=== PATIENT | female | born 2000 | race Two or more races ===

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

== ENCOUNTER 2019-10-09 12:30 | Emergency (ER) | payer SELFPAY ==
[~2019-10-09] VITALS: Ht 154.9 cm; Wt 80.0 kg
[~2019-10-09 12:30] MED LIST changes: +THIA100T43 PO
[2019-10-09 14:15] VITALS: BP 139/73
--- NOTE | 2019-10-09 14:16 | PHYS DOC ---
Past Medical History Past Medical History: No Pertinent History Past Surgical History: No Surgical History Smoking Status: Never Smoker Alcohol Use: None Drug Use: None General Adult EDM: Chief Complaint: LACERATION/AVULSION HPI: HPI: Patient is a 19 year old female who presents with laceration to right hand after punching a mirror today. Patient rates pain 6 out of 10 right third knuckle. Patient denies any radiation of pain, no alleviating or aggravating factors. she did not take anything for pain prior to arrival. Patient is unsure when her last tetanus shot was. Review of Systems: Review of Systems: Musculoskeletal: Denies back pain, see HPI [] Integument: See HPI Psychiatric: Denies depression or anxiety. [] Heart Score: Risk Factors: Risk Factors: DM, Current or recent (<one month) smoker, HTN, HLP, family history of CAD, obesity. Risk Scores: Score 0 - 3: 2.5% MACE over next 6 weeks - Discharge Home Score 4 - 6: 20.3% MACE over next 6 weeks - Admit for Clinical Observation Score 7 - 10: 72.7% MACE over next 6 weeks - Early Invasive Strategies Allergies: Allergies: Allergies Coded Allergies Type Severity Reaction Last Updated Verified No Known Drug Allergies 07/21/14 No Physical Exam: PE: Constitutional: Well developed, well nourished, no acute distress, non-toxic appearance. [] HENT: Normocephalic, atraumatic, bilateral external ears normal, nose normal. [] Eyes: PERRLA, EOMI, conjunctiva normal, no discharge. [] Neck: Normal range of motion, no stridor. [] Cardiovascular:Heart rate regular rhythm Lungs & Thorax: Respirations even and unlabored, no retractions, no respiratory distress Skin: Warm, dry, no erythema, no rash; multiple small lacerations to dorsal aspect of right hand: lac #1- 3 cm laceration to lateral aspect of right hand with active bleeding noted, no visible foreign body, #2- 2 cm vertical laceration proximal to the volar aspect of the third digit without active bleeding or visible foreign body, #3- 1 cm horizontal laceration just proximal to laceration #2 without active bleeding or visible foreign body, #4 0.5 cm horizontal laceration lateral to proximal aspect of laceration number 2 Extremities: No cyanosis, ROM intact, minimal swelling noted to MCP joint of right third finger [] Neurologic: Alert and oriented X 3, no focal deficits noted. [] Psychologic: Affect normal, judgement normal, mood normal. [] EKG: EKG: [] Radiology/Procedures: Radiology/Procedures: PROCEDURE: HAND RIGHT 3V Right hand 3 views. HISTORY: Punched a mirror 3 views were taken of the hand. There is soft tissue injury along the lateral aspect of the hand. 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 There is no fracture or acute osseous abnormality. IMPRESSION: 1. Soft tissue injury right hand. 2. No acute fracture. 3. Short fifth metacarpal. Laceration Repair by me: Anesthesia: 1% lidocaine locally Location: #1 lateral right hand Tendon/Joint/Nerves: No injury Foreign body: None detected after copious irrigation and exploration Technique: 9 Simple Interrupted Sutures with 4-0 Prolene Complexity: No subcutaneous sutures/mucosal repair/edge excision Post Closure Length: 4 cm Anesthesia: 1% lidocaine locally Location: #2 proximal to 3rd digit of right hand Tendon/Joint/Nerves: No injury Foreign body: None detected after copious irrigation and exploration Technique: 4 Simple Interrupted Sutures with 4-0 Prolene Complexity: No subcutaneous sutures/mucosal repair/edge excision Post Closure Length: cm Anesthesia: 1% lidocaine locally Location: #3 proximal to laceration #2 Tendon/Joint/Nerves: No injury Foreign body: None detected after copious irrigation and exploration Technique: 2 Simple Interrupted Sutures with 4-0 Prolene Complexity: No subcutaneous sutures/mucosal repair/edge excision Post Closure Length: 1 cm Anesthesia: 1% lidocaine locally Location: #4 medial to proximal laceration #2 Tendon/Joint/Nerves: No injury Foreign body: None detected after copious irrigation and exploration Technique: 1 Simple Interrupted Sutures with 4-0 Prolene Complexity: No subcutaneous sutures/mucosal repair/edge excision Post Closure Length: 0.5 cm Patient's bleeding was easily controlled in the department and there is no indication of anemia. No evidence of compartment syndrome, neurologic injury, vascular injury, open joint, tendon laceration, or foreign body. Patient is appropriate for outpatient follow up. [] Course & Med Decision Making: Course & Med Decision Making Pertinent Labs and Imaging studies reviewed. (See chart for details) Patient is a 19-year-old female coming in for laceration to her right hand after she punched a mirror today. Will clean wounds, suture laceration, administer tetanus shot. Prescription written for Keflex 500 mg 3 times daily x5 days. Recommend the patient clean the area as affected and apply antibiotic ointment twice daily. Sutures out in 14 days, may take Tylenol or ibuprofen as needed for pain. Patient verbalized an understanding of home care, medications, follow-up, and return to ED instructions and was in agreement with the plan of care. [] Dragon Disclaimer: Draglouie Disclaimer: This electronic medical record was generated, in whole or in part, using a voice recognition dictation system. Departure Departure Impression: Primary Impression: Need for Tdap vaccination Additional Impression: Multiple lacerations Disposition: HOME, SELF-CARE Condition: STABLE Referrals: NO PCP (PCP) Patient Instructions: Laceration Care, Adult, [id number] Additional Instructions: Fill the prescription and use as directed. Keep the affected areas clean and dry. You may take Tylenol or ibuprofen as needed for pain. Keep the dressing that was placed today on for 24 hours then change the dressing twice a day and apply antibiotic ointment to the area. Follow-up with your primary care doctor, or return to the emergency room in 14 days to have the sutures removed, sooner if you develop signs of infection including: redness, warmth, drainage, or a fever. Scripts Cephalexin (KEFLEX) 500 Mg Capsule 500 MG PO TID for 7 Days, #21 CAP 0 Refills Prov: CONSTANTINE GONZALEZ APRN 10/09/19 Justicifation of Admission Dx: Justifications for Admission: Justification of Admission Dx: N/A CONSTANTINE GONZALEZ APRN Oct 09, 2019 14:16
--- NOTE | 2019-10-09 14:41 | RAD ---
Right hand 3 views. HISTORY: Punched a mirror 3 views were taken of the hand. There is soft tissue injury along the lateral aspect of the hand. 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 There is no fracture or acute osseous abnormality. IMPRESSION: 1. Soft tissue injury right hand. 2. No acute fracture. 3. Short fifth metacarpal. Electronically signed by: Vernon Le MD (10/09/2019 2:38 PM) [facility]
[2019-10-09] MEDS ORDERED: DIPH,PERTUSS(ACELL),TET VAC/PF 0.5 ML SYRINGE. VAX IM ONE (14:45)
[2019-10-09] MEDS ORDERED: LIDOCAINE 1% Multi-Dose 20 ML VIAL. INJ ONE (15:45)
[2019-10-09] MEDS ORDERED: CEPH-264 PO (18:06)
== END 2019-10-09 18:24 | disposition home or self-care (01) ==
LOC: ER 12:30
DX: S61.212A Laceration without foreign body of right middle finger without damage to nail, initial encounter (principal); S61.411A Laceration without foreign body of right hand, initial encounter; W25.XXXA Contact with sharp glass, initial encounter; Y93.89 Activity, other specified; Y92.89 Other specified places as the place of occurrence of the external cause; Y99.8 Other external cause status
CPT/HCPCS: 12002; 73130; 90471; 90715; 99283; J3490

== ENCOUNTER 2020-03-12 05:06 | Observation (INO) | payer SELFPAY ==
[~2020-03-12] VITALS: Ht 156.2 cm; Wt 70.9 kg
[2020-03-12] VITALS (20 sets, daily range): BP systolic 100–136; BP diastolic 37–89
[~2020-03-12 05:06] MED LIST changes: +CEPH-264 PO
--- NOTE | 2020-03-12 05:19 | PHYS DOC ---
Past Medical History Past Medical History: No Pertinent History (CHANEL SANCHEZ MD) Past Surgical History: No Surgical History (CHANEL SANCHEZ MD) Smoking Status: Never Smoker Alcohol Use: None Drug Use: None (CHANEL SANCHEZ MD) General Adult EDM: Chief Complaint: ABDOMINAL PAIN HPI: HPI: Patient is a 20 year old female who arrives with a chief complaint of abdominal pain. Patient was in her normal state health until approximately 30 minutes ago when she began having sharp stabbing diffuse nonradiating abdominal pain. Pat ient states the pain is currently 10 out of 10. Pain is worse with palpation. Patient had nausea but no vomiting. Patient has any fevers, chills, cough, shortness of breath. Patient denies any dysuria. Patient's last menstrual period was 1 day ago. (CHANEL SANCHEZ MD) Review of Systems: Review of Systems: Constitutional: Denies fever or chills. [] Eyes: Denies change in visual acuity. [] HENT: Denies nasal congestion or sore throat. [] Respiratory: Denies cough or shortness of breath. [] Cardiovascular: Denies chest pain or edema. [] GI: Complains abdominal pain with nausea but no vomiting diarrhea or blood in stool : Denies dysuria. [] Musculoskeletal: Denies back pain or joint pain. [] Integument: Denies rash. [] Neurologic: Denies headache, focal weakness or sensory changes. [] Endocrine: Denies polyuria or polydipsia. [] Lymphatic: Denies swollen glands. [] Psychiatric: Denies depression or anxiety. [] (CHANEL SANCHEZ MD) Heart Score: Risk Factors: Risk Factors: DM, Current or recent (<one month) smoker, HTN, HLP, family history of CAD, obesity. Risk Scores: Score 0 - 3: 2.5% MACE over next 6 weeks - Discharge Home Score 4 - 6: 20.3% MACE over next 6 weeks - Admit for Clinical Observation Score 7 - 10: 72.7% MACE over next 6 weeks - Early Invasive Strategies (CHANEL SANCHEZ MD) Allergies: Allergies: Allergies Coded Allergies Type Severity Reaction Last Updated Verified No Known Drug Allergies 07/21/14 No (CHANEL SANCHEZ MD) Physical Exam: PE: Constitutional: Well developed, well nourished, no acute distress, non-toxic appearance. [] HENT: Normocephalic, atraumatic, bilateral external ears normal, no trismus nose normal. [] Eyes: PERRLA, EOMI, conjunctiva normal, no discharge. [] Neck: Normal range of motion, no tenderness, supple, no stridor. [] Cardiovascular:Heart rate regular rhythm, peripheral pulse intact cap refill is brisk Lungs & Thorax: Bilateral breath sounds clear, no respiratory distress Abdomen: Soft, diffuse tenderness without guarding or rebound, no masses, no pulsatile masses Skin: Warm, dry, no erythema, no rash. [] Back: No tenderness, no CVA tenderness. [] Extremities: No tenderness, no cyanosis, no clubbing, ROM intact, no edema. [] Neurologic: Alert and oriented X 3, normal motor function, normal sensory function, no focal deficits noted. [] Psychologic: Affect normal, judgement normal, mood normal. [] (CHANEL SANCHEZ MD) EKG: EKG: [] (CHANEL SANCHEZ MD) Radiology/Procedures: Radiology/Procedures: [] (HCANEL SANCHEZ MD) Course & Med Decision Making: Course & Med Decision Making Pertinent Labs and Imaging studies reviewed. (See chart for details) [] 20-year-old female presents with abdominal pain. Patient started her period reportedly yesterday. Patient has a positive test. Quantitative hCG has been added on as well as an ABO Rh and a pelvic sonogram has been ordered. CT has been canceled, Bentyl has been canceled. Care will be signed over to Dr. Parrish with labs, ultrasound and disposition pending. (CHANEL SANCHEZ MD) Dragon Disclaimer: Dragon Disclaimer: This electronic medical record was generated, in whole or in part, using a voice recognition dictation system. (CHANEL SANCHEZ MD) Departure Departure Impression: Primary Impression: Ruptured ectopic Additional Impression: Hyperglycemia Disposition: 09 ADMITTED INPT THIS HOSP Condition: STABLE Referrals: NO PCP (PCP) CHANEL SANCHEZ MD Mar 12, 2020 05:19 ELISHA PERDOMO DO Mar 12, 2020 06:44
[2020-03-12] MEDS ORDERED: ONDANSETRON PF 4 MG/2 ML VIAL. IVP ONE (05:30)
[2020-03-12] MEDS ORDERED: IV NORMAL SALINE 1000ML BAG 1,000 ML IV ONE (05:30)
[2020-03-12] MEDS ORDERED: DICYCLOMINE 20 MG/2 ML VIAL. IM ONE (05:30)
[2020-03-12 05:48] LABS: BILIRUBIN,URINE NEGATIVE (NEG); CLARITY,URINE CLEAR; COLOR,URINE YELLOW; NITRITE,URINE POSITIVE (NEG); PH,URINE 5.5 (<5.0-8.0); PROTEIN,URINE 30 mg/dL (NEG-TRACE); UROBILINOGEN,URINE 0.2 mg/dL (0.2 mg/dL)
[2020-03-12 05:53] LABS: BASO # 0.1 x10^3/uL (0.0-0.2); BASO % 0 % (0-3); EOS # 0.1 x10^3/uL (0.0-0.7); EOS % 1 % (0-3); HEMATOCRIT 32.5 % (36.0-47.0); HEMOGLOBIN 10.9 g/dL (12.0-15.5); LYMPH % 33 % (24-48); MEAN CORPUSCULAR HEMOGLOBIN 30 pg (25-35); MEAN CORPUSCULAR HGB CONC 34 g/dL (31-37); MEAN CORPUSCULAR VOLUME 89 fL (79-100); MONO % 7 % (0-9); NEUT # 9.1 x10^3/uL (1.8-7.7); NEUT % 59 % (31-73); PLATELET COUNT 492 x10^3/uL (140-400); RED BLOOD COUNT 3.64 x10^6/uL (3.50-5.40); RED CELL DISTRIBUTION WIDTH 16.1 % (11.5-14.5); WHITE BLOOD COUNT 15.3 x10^3/uL (4.0-11.0)
[2020-03-12] MEDS ORDERED: MORPHINE SULFATE 4 MG/ML VIAL. IV ONE (06:00)
[2020-03-12 06:01] LABS: CALCIUM 8.4 mg/dL (8.5-10.1); CREATININE 0.7 mg/dL (0.6-1.0); GFR 105.6; POTASSIUM 3.3 mmol/L (3.5-5.1)
[2020-03-12 06:05] LABS: ALBUMIN 3.3 g/dL (3.4-5.0); ALBUMIN/GLOBULIN RATIO 0.9 (1.0-1.7); TOTAL BILIRUBIN 0.2 mg/dL (0.2-1.0)
[2020-03-12 06:09] LABS: BACTERIA,URINE MODERATE /HPF (0-FEW); RBC,URINE 20-40 /HPF (0-2); WBC,URINE 20-40 /HPF (0-4)
[2020-03-12] MEDS ORDERED: cefTRIAXone IV Push 1 GM VIAL. IVP ONE (06:15)
--- NOTE | 2020-03-12 06:41 | RAD ---
OB <14 WKS W/TV History: Reason: abd pain, preg / Spl. Instructions: / History: Comparison: None. Technique: Grayscale and color Doppler imaging of the pelvis was performed using transabdominal technique. Findings: The uterus measures 9.8 x 4.2 x 5.1 cm. No evidence of intrauterine gestational sac. Gestational sac within the right adnexa adjacent to the uterus likely within the dilated fallopian tube. pole is identified with crown-rump length 0.6 cm. Estimated gestational age by ultrasound 6 weeks 3 days. cardiac activity is partially seen. Exact not identified. There is moderate pelvic complicated fluid, likely hemoperitoneum. Right ovary measures 5.1 x 2.8 x 3.2 cm. Dominant right ovarian follicle measures 2.9 cm. Left ovary measures 2.2 x 2.4 x 2.3 cm. Dominant left ovarian follicle measures 1.3 cm. Normal Doppler flow to the ovaries bilaterally. No adnexal masses are seen. IMPRESSION: 1. Right-sided ectopic with complicated fluid in the pelvis concerning for ruptured ectopic . FOR INTERNAL CODING PURPOSES Critical result: Findings discussed with CHANEL SANCHEZ at 03/12/2020 6:38 AM. RESULT CODE: (C) Electronically signed by: Jay Patel DO (03/12/2020 6:38 AM) [facility]
[2020-03-12] MEDS ORDERED: MORPHINE SULFATE 4 MG/ML VIAL. IV PRN (06:45)
[2020-03-12] MEDS ORDERED: ONDANSETRON PF 4 MG/2 ML VIAL. IV PRN ×3 (06:45→09:00)
[2020-03-12] MEDS ORDERED: ROCURONIUM 50 MG/5 ML VIAL. ONE (07:01)
[2020-03-12] MEDS ORDERED: fentaNYL PF VIAL 100 MCG/2 ML VIAL ONE ×3 (07:01→08:58)
[2020-03-12] MEDS ORDERED: PROPOFOL 10 MG/ML (20ML) VIAL. IV ONE (07:01)
[2020-03-12] MEDS ORDERED: SUCCINYLCHOLINE 200 MG/10 ML VIAL. ONE (07:01)
[2020-03-12] MEDS ORDERED: KETOROLAC 30 MG/ML VIAL. ONE (07:01)
[2020-03-12] MEDS ORDERED: DEXAMETHASONE SOD PHOS 4 MG/ML VIAL ONE (07:01)
[2020-03-12] MEDS ORDERED: ONDANSETRON PF 4 MG/2 ML VIAL. ONE (07:01)
[2020-03-12] MEDS ORDERED: SEVOFLURANE 61 TO 120 MINUTES. IH ONE (07:01)
[2020-03-12] MEDS ORDERED: LIDOCAINE 2% PF 5 ML VIAL. ONE (07:02)
[2020-03-12] MEDS ORDERED: SURGICEL HEMOSTAT 4X8 EACH. ONE (07:08)
[2020-03-12] MEDS ORDERED: HYDROmorphone 2 MG/ML VIAL IV PRN (07:15)
[2020-03-12] MEDS ORDERED: MORPHINE SULFATE 2 MG/ML VIAL. IV PRN (07:15)
[2020-03-12] MEDS ORDERED: PROCHLORPERAZINE 10 MG/2 ML VIAL. IV PRN ×2 (07:15→09:00)
[2020-03-12] MEDS ORDERED: fentaNYL PF VIAL 100 MCG/2 ML VIAL IV PRN ×2 (07:15)
[2020-03-12] MEDS ORDERED: BUPIVACAINE-EPI 0.25%-1:200000 MPF 30 ML VIAL. INJ ONE (07:15)
[2020-03-12] MEDS ORDERED: IV RINGERS,LACTATED 1000ML 1,000 ML IV SCH (07:15)
[2020-03-12] MEDS ORDERED: ceFAZolin SODIUM IV Push 1 GM VIAL. IVP PRN (07:45)
[2020-03-12] MEDS ORDERED: ESMOLOL 100 MG/10 ML VIAL. IVP ONE (07:56)
[2020-03-12] MEDS ORDERED: NEOSTIGMINE METHYLSULFATE 5 MG/5 ML SYRINGE. ONE (08:26)
[2020-03-12] MEDS ORDERED: GLYCOPYRROLATE 1 MG/5 ML VIAL. ONE (08:26)
--- NOTE | 2020-03-12 08:49 | PDOC ---
BRIEF OPERATIVE NOTE Date: Mar 12, 2020 Pre-Op Diagnosis Ruptured Ectopic Post-Op Diagnosis SAme Procedure Performed [facility] Right Salpingectomy Surgeon Dr. Pearson Anesthesia Type: General Blood Loss 1000 ml Specimens Obtained Right fallopian tube with ectopic Findings ruptured ectopic with 1,000 ml blood clot; nml ovaries gasper., nml Left fallopian tube Complications none Operative Note see dictation AILYN PEARSON Jr, MD Mar 12, 2020 08:49
[2020-03-12] MEDS ORDERED: diphenhydrAMINE 50 MG/ML VIAL IV PRN (09:00)
[2020-03-12] MEDS ORDERED: DEXTROSE 50% 25 GM / 50ML DISP.SYRIN. IV PRN (09:00)
[2020-03-12] MEDS ORDERED: CALCIUM CARBONATE 500 MG TAB.CHEW PO PRN (09:00)
[2020-03-12] MEDS ORDERED: diphenhydrAMINE HCL 25 MG CAPSULE PO PRN (09:00)
[2020-03-12] MEDS ORDERED: 0.9 % SODIUM CHLORIDE 10 ML DISP.SYRIN. IV PRN (09:00)
[2020-03-12] MEDS ORDERED: ZOLPIDEM 5 MG TABLET. PO PRN (09:00)
--- NOTE | 2020-03-12 09:03 | OP ---
DATE OF SURGERY: PREOPERATIVE DIAGNOSIS: Ruptured ectopic . POSTOPERATIVE DIAGNOSIS: Ruptured ectopic . PROCEDURE: Laparoscopic right salpingectomy. SURGEON: Hipolito Pearson MD. ANESTHESIA: GETA. ESTIMATED BLOOD LOSS: 1000 mL. COMPLICATIONS: None. FINDINGS: Ruptured ectopic on the right side, 1000 mL blood clot in the abdomen, normal ovaries bilaterally, normal left fallopian tube. SUMMARY: A 20-year-old 2, para 1 with early gestation, presented with severe right lower quadrant pain that continued to worsen. Sonogram indicated ruptured ectopic with moderate amount of blood in the abdomen. The patient was counseled on the risks, benefits and expectations of laparoscopic right salpingectomy and voiced clear understanding to proceed. DESCRIPTION OF PROCEDURE: The patient was taken to surgery suite and placed in dorsal lithotomy position, was prepped with Betadine solution for vaginal prep and ChloraPrep for abdominal prep. After adequate anesthesia, bivalve speculum was placed vaginally. Anterior lip of the cervix grasped with single tooth tenaculum. The uterine acorn manipulator was then placed. The bivalve speculum was removed. Attention was now placed on abdomen. Small transverse skin incision was made just below the umbilicus with a scalpel. The Veress needle was then placed through the infraumbilical incision site. The abdomen was allowed to insufflate up to 1-1/2 liters CO2 gas. The Veress needle was then removed, 5 mm trocar was placed. Scope was positioned. There was a large amount of blood clot in the abdomen. Two additional incisions were made, 1 in the left lower quadrant in which a 5 mm trocar was placed, 1 at the midline 2 fingerbreadths above the pubic symphysis in which an 11 mm trocar was placed. Suction irrigation was utilized to remove the majority of the blood clot and blood. The uterus was then visualized. Left fallopian tube and ovary appeared normal. The right fallopian tube contained ectopic with active bleeding. Right ovary appeared normal. There was also a paratubal cyst on the right fallopian tube. With the aid of graspers and the EnSeal device, distal salpingectomy was performed removing the right fallopian tube and ectopic . This was removed through the Endobag. The adnexa was hemostatic. Suction irrigation was utilized to verify good hemostasis. Small amount of normal saline was left in posterior cul-de-sac. The trocars were then removed under direct visualization. The abdomen was allowed to deflate as much as possible along with mechanical manipulation. The 11 mm port site was closed at the fascial layer using 2-0 Vicryl suture in [id number] manner. The 3 skin incisions were closed at the skin level using 4-0 Vicryl suture in a subcuticular manner. A 0.25% Marcaine with epinephrine was injected at each incision site. The patient tolerated the procedure well and was taken to recovery room in stable condition. Sponge and needle count correct x 3. HIPOLITO PEARSON MD DR: MCKINLEY/kayla JOB#: [id number] / [id number]
[2020-03-12] MEDS: oxyCODONE/APAP 5/325 1 TAB TABLET PO PRN ×4 (10:59→23:06)
[2020-03-12] MEDS: KETOROLAC 30 MG/ML VIAL. IV PRN ×2 (14:40→20:51)
[2020-03-12] MEDS: GABAPENTIN 300 MG CAPSULE. PO SCH ×2 (14:40→23:00)
[2020-03-12 18:59] LABS: HEMATOCRIT 28.5 % (36.0-47.0)
[2020-03-12] MEDS: SIMETHICONE 80 MG TAB.CHEW PO PRN ×2 (19:32→23:06)
[2020-03-12] MEDS ORDERED: FLU VACC QS 2020-21(6MOS+)/PF 0.5 ML SYRINGE. VAX IM ONE (20:45)
[2020-03-13 01:18] VITALS: BP 95/52
[2020-03-13] MEDS: oxyCODONE/APAP 5/325 1 TAB TABLET PO PRN ×2 (05:54→12:21)
[2020-03-13] MEDS: GABAPENTIN 300 MG CAPSULE. PO SCH (05:54)
[2020-03-13] MEDS: KETOROLAC 30 MG/ML VIAL. IV PRN (05:54)
[2020-03-13 06:05] VITALS: BP 94/50
[2020-03-13 08:56] LABS: BASO % 0 % (0-3); EOS % 0 % (0-3); HEMATOCRIT 23.7 % (36.0-47.0); HEMOGLOBIN 8.3 g/dL (12.0-15.5); LYMPH # 2.2 x10^3/uL (1.0-4.8); LYMPH % 29 % (24-48); MEAN CORPUSCULAR HEMOGLOBIN 31 pg (25-35); MEAN CORPUSCULAR HGB CONC 35 g/dL (31-37); MEAN CORPUSCULAR VOLUME 87 fL (79-100); MONO # 0.7 x10^3/uL (0.0-1.1); MONO % 9 % (0-9); NEUT # 4.7 x10^3/uL (1.8-7.7); NEUT % 62 % (31-73); PLATELET COUNT 200 x10^3/uL (140-400); RED BLOOD COUNT 2.72 x10^6/uL (3.50-5.40); RED CELL DISTRIBUTION WIDTH 14.7 % (11.5-14.5); WHITE BLOOD COUNT 7.6 x10^3/uL (4.0-11.0)
--- NOTE | 2020-03-13 11:37 | PDOC ---
SURGICAL PROGRESS NOTE DATE: 03/13/20 TIME: 11:36 Subjective Pt. feeling well. No complaints. Vital Signs Vital Signs Date Time Temp Pulse Resp B/P (MAP) Pulse Ox O2 Delivery O2 Flow Rate FiO2 03/13/20 06:05 97.9 75 18 94/50 (65) Room Air 97.9 03/13/20 01:18 98 03/12/20 09:35 8.0 I&O Intake and Output 03/13/20 07:00 Intake Total 2065 ml Output Total 1500 ml Balance 565 ml Intake IV Total 1600 ml Blood Product IV Normal Saline Flush 465 ml Output Urine Total 500 ml Estimated Blood Loss 1000 ml PATIENT HAS A SCHULZ: No General: Alert, Oriented X3, Cooperative HEENT: Atraumatic Lungs: Clear to auscultation Heart: Regular rate Abdomen: Normal bowel sounds, Soft Psych/Mental Status: Mental status NL Labs Laboratory Tests Test 03/12/20 05:10 03/12/20 05:21 03/12/20 05:35 03/12/20 07:00 Urine Collection Type Void Urine Color Yellow Urine Clarity Clear Urine pH 5.5 (<5.0-8.0) Urine Specific [place] 1.015 (1.000-1.030) Urine Protein 30 mg/dL (NEG-TRACE) Urine Glucose (UA) Negative mg/dL (NEG) Urine Ketones (Stick) Negative mg/dL (NEG) Urine Blood Large (NEG) Urine Nitrite Positive (NEG) Urine Bilirubin Negative (NEG) Urine Urobilinogen Dipstick 0.2 mg/dL (0.2 mg/dL) Urine Leukocyte Esterase Small (NEG) Urine RBC 20-40 /HPF (0-2) Urine WBC 20-40 /HPF (0-4) Urine Squamous Epithelial Cells Mod /LPF Urine Bacteria Moderate /HPF (0-FEW) Urine Mucus Slight /LPF Bedside Urine HCG, Qualitative Hcg positive (Negative) White Blood Count 15.3 x10^3/uL (4.0-11.0) Red Blood Count 3.64 x10^6/uL (3.50-5.40) Hemoglobin 10.9 g/dL (12.0-15.5) Hematocrit 32.5 % (36.0-47.0) Mean Corpuscular Volume 89 fL (79-100) Mean Corpuscular Hemoglobin 30 pg (25-35) Mean Corpuscular Hemoglobin Concent 34 g/dL (31-37) Red Cell Distribution Width 16.1 % (11.5-14.5) Platelet Count 492 x10^3/uL (140-400) Neutrophils (%) (Auto) 59 % (31-73) Lymphocytes (%) (Auto) 33 % (24-48) Monocytes (%) (Auto) 7 % (0-9) Eosinophils (%) (Auto) 1 % (0-3) Basophils (%) (Auto) 0 % (0-3) Neutrophils # (Auto) 9.1 x10^3/uL (1.8-7.7) Lymphocytes # (Auto) 5.0 x10^3/uL (1.0-4.8) Monocytes # (Auto) 1.0 x10^3/uL (0.0-1.1) Eosinophils # (Auto) 0.1 x10^3/uL (0.0-0.7) Basophils # (Auto) 0.1 x10^3/uL (0.0-0.2) Maternal Serum HCG Beta Subunit 83914 mIU/mL (0-5) Sodium Level 140 mmol/L (136-145) Potassium Level 3.3 mmol/L (3.5-5.1) Chloride Level 103 mmol/L (98-107) Carbon Dioxide Level 25 mmol/L (21-32) Anion Gap 12 (6-14) Blood Urea Nitrogen 7 mg/dL (7-20) Creatinine 0.7 mg/dL (0.6-1.0) Estimated GFR (Cockcroft-Gault) 105.6 BUN/Creatinine Ratio 10 (6-20) Glucose Level 209 mg/dL (70-99) Calcium Level 8.4 mg/dL (8.5-10.1) Total Bilirubin 0.2 mg/dL (0.2-1.0) Aspartate Amino Transf (AST/SGOT) 12 U/L (15-37) Alanine Aminotransferase (ALT/SGPT) 13 U/L (14-59) Alkaline Phosphatase 42 U/L (46-116) Total Protein 7.0 g/dL (6.4-8.2) Albumin 3.3 g/dL (3.4-5.0) Albumin/Globulin Ratio 0.9 (1.0-1.7) Lipase 75 U/L (73-393) SARS-CoV-2 Antigen (Rapid) Negative (NEGATIVE) Test 03/12/20 18:45 03/13/20 08:35 Hemoglobin 10.0 g/dL (12.0-15.5) 8.3 g/dL (12.0-15.5) Hematocrit 28.5 % (36.0-47.0) 23.7 % (36.0-47.0) Mean Corpuscular Hemoglobin Concent 35 g/dL (31-37) 35 g/dL (31-37) White Blood Count 7.6 x10^3/uL (4.0-11.0) Red Blood Count 2.72 x10^6/uL (3.50-5.40) Mean Corpuscular Volume 87 fL (79-100) Mean Corpuscular Hemoglobin 31 pg (25-35) Red Cell Distribution Width 14.7 % (11.5-14.5) Platelet Count 200 x10^3/uL (140-400) Neutrophils (%) (Auto) 62 % (31-73) Lymphocytes (%) (Auto) 29 % (24-48) Monocytes (%) (Auto) 9 % (0-9) Eosinophils (%) (Auto) 0 % (0-3) Basophils (%) (Auto) 0 % (0-3) Neutrophils # (Auto) 4.7 x10^3/uL (1.8-7.7) Lymphocytes # (Auto) 2.2 x10^3/uL (1.0-4.8) Monocytes # (Auto) 0.7 x10^3/uL (0.0-1.1) Eosinophils # (Auto) 0.0 x10^3/uL (0.0-0.7) Basophils # (Auto) 0.0 x10^3/uL (0.0-0.2) Laboratory Tests Test 03/12/20 18:45 03/13/20 08:35 Hemoglobin 10.0 g/dL (12.0-15.5) 8.3 g/dL (12.0-15.5) Hematocrit 28.5 % (36.0-47.0) 23.7 % (36.0-47.0) Mean Corpuscular Hemoglobin Concent 35 g/dL (31-37) 35 g/dL (31-37) White Blood Count 7.6 x10^3/uL (4.0-11.0) Red Blood Count 2.72 x10^6/uL (3.50-5.40) Mean Corpuscular Volume 87 fL (79-100) Mean Corpuscular Hemoglobin 31 pg (25-35) Red Cell Distribution Width 14.7 % (11.5-14.5) Platelet Count 200 x10^3/uL (140-400) Neutrophils (%) (Auto) 62 % (31-73) Lymphocytes (%) (Auto) 29 % (24-48) Monocytes (%) (Auto) 9 % (0-9) Eosinophils (%) (Auto) 0 % (0-3) Basophils (%) (Auto) 0 % (0-3) Neutrophils # (Auto) 4.7 x10^3/uL (1.8-7.7) Lymphocytes # (Auto) 2.2 x10^3/uL (1.0-4.8) Monocytes # (Auto) 0.7 x10^3/uL (0.0-1.1) Eosinophils # (Auto) 0.0 x10^3/uL (0.0-0.7) Basophils # (Auto) 0.0 x10^3/uL (0.0-0.2) Problem List Problems Medical Problems: (1) Hyperglycemia Status: Acute (2) Pelvic pain Status: Acute (3) Status: Acute (4) Ruptured ectopic Status: Acute Assessment/Plan POD#1 s/p [facility]SP[facility] Right Salpingectomy P: D/c home. Justicifation of Admission Dx: Justifications for Admission: Justification of Admission Dx: N/A AILYN YEE Jr, MD Mar 13, 2020 11:37
[2020-03-13 11:38] VITALS: BP 101/47
[2020-03-13] MEDS ORDERED: OXYC1TAB15 PO (11:39)
--- NOTE | 2020-03-13 11:40 | DISCH ---
DISCHARGE INSTRUCTIONS Condition on Discharge Condition on Discharge: Stable Activity After Discharge Activity Instructions for Disc: Activity as tolerated Lifting Instructions after Dis: No heavy lifting Driving Instructions after Dis: Do not drive today Diet after Discharge Diet after Discharge: Regular Contacting the DRLuis after DC Call your doctor for: Concerns you may have Follow-Up Follow up with: Dr. Pearson in 2 wkw AILYN PEARSON Jr, MD Mar 13, 2020 11:40
--- NOTE | 2020-03-17 09:19 | PATHOLOGY ---
[facility] Accession Number: [id number] . 01 Material submitted: . fallopian tube - RIGHT FALLOPIAN TUBE WITH ECTOPIC . Modifiers: right . 01 Clinical history: . RUPTURED ECTOPIC . 02 Diagnosis: Fallopian tube, right salpingectomy: - Ectopic tubal . - Hematosalpinx. - Paratubal cyst. ([facility] 03/16/2020) QTP 03/16/2020 1725 Local . 02 Electronically signed: . Thom Burns MD, Pathologist NPI- [id number] . 01 Gross description: . The specimen is received in formalin, labeled "Tobias, Saralexandra, right fallopian tube with ectopic " and consists of a focally disrupted fimbriated fallopian tube segment measuring 6.5 cm in length and ranging from 0.7-1.3 cm in diameter. There is a 2.3 x 1.6 cm paratubal cyst devoid of contents showing a smooth lining. Sectioning shows a dilated lumen contains clot and possible brown tissue. Stone Repairer sections to include the entire dilated aspect with clot are submitted in A1-A4. (SDY; 03/14/2020) SYU/SYU 03/14/2020 0930 Local . 02 Pathologist provided ICD-10: N83.6, N83.8 . 02 CPT . 131972 Specimen Comment: A courtesy copy of this report has been sent to [phone] Specimen Comment: Report sent to Performed at: 01 [facility] [address], [place], [place] [id number] MD Tam Vazquez MD Phone: [phone] Performed at: 02 [facility] [address] [place], [place] [id number] MD Thom Burns MD Phone: [phone]
== END 2020-03-13 12:30 | disposition home or self-care (01) ==
LOC: ER 05:06 → 3 NORTH 06:55
PROVIDERS: ADMIT Obstetrics & Gynecology; ATTEND Obstetrics & Gynecology
DX: O00.90 Unspecified ectopic pregnancy without intrauterine pregnancy (principal); Z20.828 Contact with and (suspected) exposure to other viral communicable diseases; O23.41 Unspecified infection of urinary tract in pregnancy, first trimester; O26.891 Other specified pregnancy related conditions, first trimester; R73.9 Hyperglycemia, unspecified; N83.8 Other noninflammatory disorders of ovary, fallopian tube and broad ligament; Z3A.01 Less than 8 weeks gestation of pregnancy; Z23 Encounter for immunization
CPT/HCPCS: 36415; 36430; 59151; 76801; 76817; 80053; 81001; 81025; 83690; 84702; 85014; 85018; 85025; 86850; 86900; 86901; 86920; 87077; 87086; 87186; 87426; 90471; 90686; 96361; 96374; 96375; 96376; 99284; G0378; J0330; J0696; J1100; J1885; J2270; J2405; J2704; J2710; J3010; J3490; J7030; J7120; P9016; U0003; G0379

== ENCOUNTER 2020-04-01 19:29 | Emergency (ER) | payer SELFPAY ==
[~2020-04-01] VITALS: Ht 160 cm; Wt 68.0 kg
[~2020-04-01 19:29] MED LIST changes: +OXYC1TAB15 PO
[2020-04-01 20:01] LABS: BILIRUBIN,URINE NEGATIVE (NEG); CLARITY,URINE CLEAR; COLOR,URINE YELLOW; NITRITE,URINE POSITIVE (NEG); PROTEIN,URINE NEGATIVE (NEG-TRACE); UROBILINOGEN,URINE 0.2 mg/dL (0.2 mg/dL)
[2020-04-01 20:15] LABS: AMORPHOUS SEDIMENT,UR PRESENT /HPF; BACTERIA,URINE FEW /HPF (0-FEW)
[2020-04-01 20:16] LABS: RBC,URINE OCC /HPF (0-2)
[2020-04-01] MEDS ORDERED: CEPH500T PO (20:28)
--- NOTE | 2020-04-01 20:28 | PHYS DOC ---
Past Medical History Past Medical History: No Pertinent History Past Surgical History: No Surgical History Smoking Status: Never Smoker Alcohol Use: None Drug Use: None General Adult EDM: Chief Complaint: ABDOMINAL PAIN IN HPI: HPI: Patient is a 20 year old female 1 para 0 who presents to the ED today stating she thinks she is and is having another ectopic . Patient states she has had intermittent slight pelvic pain since this morning. She states she had an ectopic on March 11 2020 and had right fallopian tube removed. She states she was told not to have any sex for 6 weeks. She states she has been having unprotected sex and believes she is again. She states she thinks she is having an ectopic and would like to be evaluated for that. Denies any concerns for STDs. Denies any unusual vaginal discharge. Review of Systems: Review of Systems: Constitutional: Denies fever or chills. [] Eyes: Denies change in visual acuity. [] HENT: Denies nasal congestion or sore throat. [] Respiratory: Denies cough or shortness of breath. [] Cardiovascular: Denies chest pain or edema. [] GI: Reports pelvic pain and concern for ectopic , denies nausea, vomiting, bloody stools or diarrhea. [] : Denies dysuria. [] Musculoskeletal: Denies back pain or joint pain. [] Integument: Denies rash. [] Neurologic: Denies headache, focal weakness or sensory changes. [] Psychiatric: Denies depression or anxiety. [] Heart Score: Risk Factors: Risk Factors: DM, Current or recent (<one month) smoker, HTN, HLP, family history of CAD, obesity. Risk Scores: Score 0 - 3: 2.5% MACE over next 6 weeks - Discharge Home Score 4 - 6: 20.3% MACE over next 6 weeks - Admit for Clinical Observation Score 7 - 10: 72.7% MACE over next 6 weeks - Early Invasive Strategies Allergies: Allergies: Allergies Coded Allergies Type Severity Reaction Last Updated Verified No Known Drug Allergies 07/21/14 No Physical Exam: PE: Constitutional: Well developed, well nourished, no acute distress, non-toxic appearance. [] HENT: Normocephalic, atraumatic, bilateral external ears normal, oropharynx moist, no oral exudates, nose normal. [] Eyes: PERRLA, EOMI, conjunctiva normal, no discharge. [] Neck: Normal range of motion, no tenderness, supple, no stridor. [] Cardiovascular:Heart rate regular rhythm, no murmur [] Lungs & Thorax: Bilateral breath sounds clear to auscultation [] Abdomen: Bowel sounds normal, soft, no tenderness, no masses, no pulsatile masses. [] Skin: Warm, dry, no erythema, no rash. [] Back: No tenderness, no CVA tenderness. [] Extremities: No tenderness, no cyanosis, no clubbing, ROM intact, no edema. [] Neurologic: Alert and oriented X 3, normal motor function, normal sensory function, no focal deficits noted. [] Psychologic: Affect normal, judgement normal, mood normal. [] Current Patient Data: Labs: Laboratory Tests Test 04/01/20 19:50 04/01/20 19:55 Urine Collection Type Void Urine Color Yellow Urine Clarity Clear Urine pH 6.0 (<5.0-8.0) Urine Specific Gary 1.020 (1.000-1.030) Urine Protein Negative mg/dL (NEG-TRACE) Urine Glucose (UA) Negative mg/dL (NEG) Urine Ketones (Stick) Negative mg/dL (NEG) Urine Blood Trace (NEG) Urine Nitrite Positive (NEG) Urine Bilirubin Negative (NEG) Urine Urobilinogen Dipstick 0.2 mg/dL (0.2 mg/dL) Urine Leukocyte Esterase Small (NEG) Urine RBC Occ /HPF (0-2) Urine WBC 5-10 /HPF (0-4) Urine Squamous Epithelial Cells Mod /LPF Urine Amorphous Sediment Present /HPF Urine Bacteria Few /HPF (0-FEW) Urine Mucus Mod /LPF POC Urine HCG, Qualitative Hcg negative (Negative) EKG: EKG: [] Radiology/Procedures: Radiology/Procedures: [] Course & Med Decision Making: Course & Med Decision Making Pertinent Labs and Imaging studies reviewed. (See chart for details) This is a 20-year-old female patient 1 para 0 who had an ectopic on March 11, 2020 presenting today concerned she could have another ectopic . She is complaining of pelvic pain. Denies concerns for STDs. Negative urine hCG. Positive for UTI. Discharged on cephalexin. Encouraged to consider not having sexual intercourse until she hits the 6-week blanca from the date she had ectopic surgery. Enrique Disclaimer: Enrique Disclaimer: This electronic medical record was generated, in whole or in part, using a voice recognition dictation system. Departure Departure Impression: Primary Impression: Urinary tract infection Qualified Codes: N39.0 - Urinary tract infection, site not specified Additional Impression: Negative test Disposition: DC HOME SELF CARE/HOMELESS Condition: STABLE Referrals: NO PCP (PCP) AILYN YEE Jr, MD follow up in one week Patient Instructions: Urinary Tract Infection Additional Instructions: You were evaluated in the emergency room, your test is negative. You have urinary tract infection. We will send you home with antibiotics. Take them until completed. Consider not having any intercourse until you hit the 6 weeks blanca from March 11, 2020. Follow-up with your [employer]GER in 1 week Scripts Cephalexin (CEPHALEXIN) 500 Mg Tablet 1 TAB PO BID, #14 TAB Prov: ELOINA HERNANDEZ APRN 04/01/20 ELOINA HERNANDEZ APRN Apr 01, 2020 20:28
[2020-04-01 22:15] VITALS: BP 132/88
== END 2020-04-01 20:47 | disposition home or self-care (01) ==
LOC: ER 19:29
DX: N39.0 Urinary tract infection, site not specified (principal)
CPT/HCPCS: 81001; 81025; 87086; 99283